=== PATIENT | female | born 1980 ===

== ENCOUNTER 2020-10-23 23:28 | Emergency (ER) | payer SELFPAY ==
--- OUTSIDE RECORDS SUMMARY | 2020-10-23 23:31 | XMS REPORT | Continuity of Care Document ---
:1980 Author Organization [facility] t Address [address] [place] [address] Care Team Providers Name Role Phone Sadi Alexander DO Attending Clinician MS Kianna MITCHELL Attending Clinician Unavailable Willy RODRIGUEZ Attending Clinician Unavailable MS Kianna MITCHELL Admitting Clinician Unavailable Willy RODRIGUEZ Admitting Clinician Unavailable Problems This patient has no known problems. Allergies, Adverse Reactions, Alerts This patient has no known allergies or adverse reactions. Medications This patient has no known medications. Procedures This patient has no known procedures. Encounters Start End Encounter Admission Attending Care Care Encounter Source Date/Time Date/Time Type Type Clinicians Facility Department ID 2020-06-25 2020-06-[address] [facility] [id number] 19:53:00 21:47:00 Yuki Navarro [id number] [place] [id number] [place] [id number] 2018-05-24 2018-05-[address] [facility] [id number] [place] 12:08:00 12:41:00 [facility] 2017-08-17 2017-08-18 Emergency E YINA [facility]ODRIGUEZ [facility] [id number]18[facility]00 [facility] Results Test Description Test Time Test Comments Results Result Comments Source AMYLASE AND LIPASE 2017-08-18 00:12:00 Test Item Value Reference Range Interpretation Comme nts AMYLASE (test code = 10A) 29 U/L 28-100 LIPASE (test code = 60A) 186 IU/L 73-393 COMPREHENSIVE METABOLIC POLO 2017-08-18 00:12:00 Test Item Value Reference Range Interpretation Comments GLUCOSE (test code = 06D) 230 mg/dL 75-100 H SODIUM (test code = 01A) 137 mmol/L 136-145 POTASSIUM (test code = 01B) 3.5 mmol/L 3.6-5.1 L CHLORIDE (test code = 04A) 101 mmol/L 98-107 CO2 (test code = 02A) 29 mmol/L 22-32 ANION GAP (test code = ANG) 10.5 mmol/L BUN (test code = 05D) 12 mg/dL 7-18 CREATININE (test code = 03E) 0.8 mg/dL 0.4-1.1 BUN/CREA (test code = BCR) 15 12-20 CALCIUM (test code = 09D) 8.4 mg/dL 8.3-9.5 BILI TOTAL (test code = 11A) 0.3 mg/dL 0.2-1.0 PROTEIN (test code = 07D) 8.2 g/dL 6.4-8.2 ALBUMIN (test code = 08D) 3.5 g/dL 3.5-4.8 GLOBULIN (test code = GLB) 4.6 g/dL 1.5-3.8 H ALB/GLOB (test code = AGRR) 0.8 1.0-2.6 L ALK PHOS (test code = 35A) 87 IU/L 42-121 AST (test code = 30A) 18 IU/L <=42 ALT (test code = 31A) 32 IU/L <=78 URINALYSIS 2017-08-18 00:00:00 Test Item Value Reference Range Interpretation Comments COLOR (test code = COLU) YELLOW YELLOW CLARITY (test code = CLA) CLEAR CLEAR GLUCOSE UR (test code = UA GLUCOSE) 3+ NEGATIVE A BILI UR (test code = BILE) NEGATIVE NEGATIVE KETONES UR (test code = PARMINDER) NEGATIVE NEGATIVE SP GRAVITY (test code = SPGR) 1.020 1.005-1.030 PH UR (test code = PH) 6.0 4.5-8.0 PROTEIN UR (test code = PU) NEGATIVE NEGATIVE UROBIL UR (test code = UROQ) 0.2 EU/dL 0.2-1.0 NITRITE UR (test code = NITRITE) NEGATIVE NEGATIVE BLOOD UR (test code = UA BLOOD) NEGATIVE NEGATIVE LEUK ES UR (test code = LEUK) NEGATIVE NEGATIVE AUAM (test code = WAUAM) NO NO URINE MONOCLONAL *WW*2017-08-18 00:00:00 Test Item Value Reference Range Interpretation Comments PREG UR (test code = PGU) NEGATIVE NEGATIVE CBC (INCLUDES AUTOMATED DIFFERENTIAL)*[id number] 23:57:00 Test Item Value Reference Range Interpretation Comments WBC (test code = WBC) 11.1 10\S\3/uL 4.5-11.0 H RBC (test code = RBC) 5.22 10\S\6/uL 4.30-5.70 HGB (test code = HBG) 15.5 g/dL 12.0-15.5 HCT (test code = HCT) 45.7 % 35.0-44.0 H MCV (test code = MCV) 87.5 fL 81.0-99.0 MCH (test code = MCH) 29.7 pg 27.0-31.0 MCHC (test code = MCHC) 33.9 g/dL 32.0-36.0 RDW (test code = RDW) 12.7 % 11.5-14.5 PLT (test code = PLT) 299 10\S\3/uL 130-400 MPV (test code = MPV) 9.8 fL 9.4-12.4 NEUTROP # (test code = NE#) 5.1 10\S\3/uL 1.6-8.0 LYMPH # (test code = LY#) 4.6 10\S\3/uL 1.1-3.5 H MONOCYTE # (test code = MO#) 0.7 10\S\3/uL 0.0-1.1 EOSINOPH # (test code = EO#) 0.7 10\S\3/uL 0.0-0.7 BASOPHIL # (test code = BA#) 0.1 10\S\3/uL 0.0-0.3 IG # (test code = IG#) 0.02 10\S\3/uL 0.00-0.06 NRBC # (test code = NRBC#) 0.00 10\S\3/uL 0.00-0.01 NEUTROPH % (test code = NE%) 45.3 % 35.0-73.0 LYMPH % (test code = LY%) 41.2 % 20.0-55.0 MONO % (test code = MO%) 6.6 % 2.5-10.0 EOSINOPH % (test code = EO%) 6.0 % 0.0-5.0 H BASOPHIL % (test code = BA%) 0.7 % 0.0-2.0 IG % (test code = IG%) 0.2 % 0.0-0.8 NRBC% (test code = NRBC%) 0.0 % 0.0-0.2 MANDIFF (test code = WMDIFF) NO NO RBC MORPH (test code = NORMAL WRBCMOR)
--- NOTE | 2020-10-24 00:22 | EDPHYS ---
Physician Documentation [facility] Name: Helen Hart Age: 39 yrs Sex: Female : 1980 Arrival Date: 10/23/2020 Time: 23:34 Bed 16 Private MD: ED Physician Lennie Shell HPI: 10/24 00:07 This 39 yrs old Female presents to ER via Ambulatory with complaints of Ankle Injury. jr8 00:07 The patient presents with decreased range of motion, pain, that is acute, swelling, jr8 tenderness. The complaints affect the right ankle. Onset: The symptoms/episode began/occurred acutely, today. Context: The problem was sustained outdoors, resulted from the patient tripping. Associated signs and symptoms: The patient has no apparent associated signs or symptoms. Modifying factors: The symptoms are alleviated by nothing, the symptoms are aggravated by weight bearing, movement. Severity of symptoms: At their worst the symptoms were mild, in the emergency department the symptoms are unchanged. The patient has not experienced similar symptoms in the past. The patient has not recently seen a physician. 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 - Social history:: Smoking status: Patient reports the use of cigarette tobacco products, smokes one pack cigarettes per day. Patient uses alcohol, occasionally. Patient/guardian denies using street drugs, IV drugs. ROS: 00:07 Eyes: Negative for injury, pain, redness, and discharge, ENT: Negative for injury, jr8 pain, and discharge, Neck: Negative for injury, pain, and swelling, Cardiovascular: Negative for chest pain, palpitations, and edema, Respiratory: Negative for shortness of breath, cough, wheezing, and pleuritic chest pain, Abdomen/GI: Negative for abdominal pain, nausea, vomiting, diarrhea, and constipation, Back: Negative for injury and pain, Skin: Negative for injury, rash, and discoloration, Neuro: Negative for headache, weakness, numbness, tingling, and seizure. 00:07 MS/extremity: Positive for decreased range of motion, pain, swelling, tenderness, of the right ankle. Exam: 00:07 Constitutional: This is a well developed, well nourished patient who is awake, alert, jr8 and in no acute distress. Cardiovascular: Regular rate and rhythm with a normal S1 and S2. No gallops, murmurs, or rubs. Normal PMI, no JVD. No pulse deficits. Respiratory: Lungs have equal breath sounds bilaterally, clear to auscultation and percussion. No rales, rhonchi or wheezes noted. No increased work of breathing, no retractions or nasal flaring. Skin: Warm, dry with normal turgor. Normal color with no rashes, no lesions, and no evidence of cellulitis. Neuro: Awake and alert, GCS 15, oriented to person, place, time, and situation. Cranial nerves II-XII grossly intact. Motor strength 5/5 in all extremities. Sensory grossly intact. Cerebellar exam normal. Normal gait. 00:07 Musculoskeletal/extremity: Extremities: grossly normal except: noted in the right ankle: Patient has mild swelling with tenderness to medial malleolus. Decreased ROM secondary to pain. Pulses 2+ with normal sensation . Vital Signs: 00:02 BP 134 / 79; Pulse 83; Resp 17; Temp 99(O); Pulse Ox 99% ; Weight 104.33 kg; Height 5 tl1 ft. 8 in. (172.72 cm); Pain 9/10; 00:02 Body Mass Index 34.97 (104.33 kg, 172.72 cm) tl1 Procedures: 00:20 Splinting: Splint applied to right ankle using dwight wrap, applied by nurse. Examined by jr8 vt, post splint application: neurovascular intact, 2+ distal pulses palpable, brisk capillary refill noted, Patient tolerated well. Crutch training provided to patient and/or family. Return demonstration given. MDM: 10/23 23:50 Patient medically screened. jr8 10/24 00:20 Data reviewed: vital signs, nurses notes, radiologic studies, plain films. Data jr8 interpreted: Pulse oximetry: on room air is 99 %. Interpretation: normal. Test interpretation: by ED physician or midlevel provider: plain radiologic studies, No obvious fracture noted. Calcaneal spur seen . Counseling: I had a detailed discussion with the patient and/or guardian regarding: the historical points, exam findings, and any diagnostic results supporting the discharge/admit diagnosis, radiology results, the need for outpatient follow up, a orthopedic surgeon, to return to the emergency department if symptoms worsen or persist or if there are any questions or concerns that arise at home. 10/23 23:57 Order name: XRAY Ankle RIGHT 3 view jr8 10/24 00:19 Order name: Crutches; Complete Time: 00:45 jr8 10/24 00:19 Order name: Dwight wrap-joint; Complete Time: 00:33 jr8 Administered Medications: No medications were administered Disposition: 02:13 Co-signature as Attending Physician, Lennie Shell MD. ma2 Disposition: 10/24/20 00:21 Discharged to Home. Impression: Sprain of ankle. - Condition is Stable. - Discharge Instructions: Ankle Sprain. - Prescriptions for Ibuprofen 800 mg Oral Tablet - take 1 tablet by ORAL route every 12 hours As needed take with food; 20 tablet. - Medication Reconciliation Form, Thank You Letter, Antibiotic Education, Prescription Opioid Use form. - Follow up: Akhil Steve MD; When: 7 - 10 days; Reason: Recheck today's complaints, Continuance of care, Re-evaluation by your physician. - Problem is new. - Symptoms have improved. Signatures: Dispatcher [employer] EDMS Geoffrey Hinson PA PA jr8 Shonda Castillo RN RN tl1 Lennie Shell MD MD ma2 Akhil Staley RN RN sf Corrections: (The following items were deleted from the chart) 00:46 00:21 10/24/2020 00:21 Discharged to Home. Impression: Sprain of ankle. Condition is sf Stable. Forms are Medication Reconciliation Form, Thank You Letter, Antibiotic Education, Prescription Opioid Use. Follow up: Akhil Steve; When: 7 - 10 days; Reason: Recheck today's complaints, Continuance of care, Re-evaluation by your physician. Problem is new. Symptoms have improved. jr8
--- NOTE | 2020-10-24 00:22 | ER ---
Nurse's Notes [facility] Name: Helen Hart Age: 39 yrs Sex: Female : 1980 Arrival Date: 10/23/2020 Time: 23:34 Bed 16 Private MD: Diagnosis: Sprain of ankle Presentation: 10/23 23:59 Chief complaint: Patient states: I was helping my brother move and I twisted my right tl1 ankle and then when I stepped out of the truck I twisted it again. This happened earlier today. Coronavirus screen: Client denies travel out of the [place] in the last 14 days. At this time, the client does not indicate any symptoms associated with coronavirus-19. Ebola Screen: Patient negative for fever greater than or equal to 101.5 degrees Fahrenheit, and additional compatible Ebola Virus Disease symptoms Patient denies exposure to infectious person. Patient denies travel to an Ebola-affected area in the 21 days before illness onset. Initial Sepsis Screen: Does the patient meet any 2 criteria? No. Patient's initial sepsis screen is negative. Does the patient have a suspected source of infection? No. Patient's initial sepsis screen is negative. Risk Assessment: Do you want to hurt yourself or someone else? Patient reports no desire to harm self or others. Onset of symptoms was October 24, 2020. 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 - Social history:: Smoking status: Patient reports the use of cigarette tobacco products, smokes one pack cigarettes per day. Patient uses alcohol, occasionally. Patient/guardian denies using street drugs, IV drugs. Screenin:04 Abuse screen: Denies threats or abuse. Denies injuries from another. Nutritional tl1 screening: No deficits noted. Tuberculosis screening: No symptoms or risk factors identified. Fall Risk None identified. Assessment: 00:03 General: Appears in no apparent distress. Behavior is calm, cooperative, appropriate tl1 for age. Pain: Complains of pain in right medial malleolus and right Achilles Pain currently is 9 out of 10 on a pain scale. Neuro: No deficits noted. Cardiovascular: Reports None. Respiratory: Airway is patent. GI: No signs and/or symptoms were reported involving the gastrointestinal system. : No signs and/or symptoms were reported regarding the genitourinary system. EENT: No signs and/or symptoms were reported regarding the EENT system. Derm: No signs and/or symptoms reported regarding the dermatologic system. Musculoskeletal: Swelling present in right medial malleolus and right Achilles Tenderness present in right medial malleolus and right Achilles Reports pain in right medial malleolus and right Achilles. Vital Signs: 00:02 BP 134 / 79; Pulse 83; Resp 17; Temp 99(O); Pulse Ox 99% ; Weight 104.33 kg; Height 5 tl1 ft. 8 in. (172.72 cm); Pain 9/10; 00:02 Body Mass Index 34.97 (104.33 kg, 172.72 cm) tl1 ED Course: 10/23 23:34 Patient arrived in ED. ag3 23:50 Geoffrey Hinson PA is PHCP. jr8 23:50 Lennie Shell MD is Attending Physician. jr8 03 00:01 Triage completed. tl1 00:03 Arm band placed on right wrist. tl1 00:13 Akhil Staley, ROD is Primary Nurse. sf 00:21 Akhil Steve MD is Referral Physician. jr8 00:25 Patient has correct armband on for positive identification. Bed in low position. Call sf light in reach. Door closed. Noise minimized. Visitors limited. Lights dimmed. Verbal reassurance given. 00:25 No provider procedures requiring assistance completed. Patient did not have IV access sf during this emergency room visit. 00:26 XRAY Ankle RIGHT 3 view Sent. sf 00:33 Dwight wrap to right ankle. sf 00:46 Crutch training done. sf 01:03 XRAY Ankle RIGHT 3 view In Process Unspecified. EDMS Administered Medications: No medications were administered Outcome: 00:21 Discharge ordered by MD. liriano 00:33 Discharged to home ambulatory, with crutches. sf 00:33 Condition: stable 00:33 Discharge instructions given to patient, Instructed on discharge instructions, follow up and referral plans. medication usage, crutch walking, Demonstrated understanding of instructions, follow-up care, medications, crutch walking, Prescriptions given X 1. 00:46 Patient left the ED. sf Signatures: Dispatcher [employer] EDMS Geoffrey Hinson PA PA jr8 Shonda Castillo, RN RN tl1 Reina Looney ag3 Akhil Staley RN RN sf
[2020-10-24 01:09] VITALS: BP 134/79; TEMP 99; O2SAT 99
--- NOTE | 2020-10-24 08:41 | RAD REPORT ---
EXAM DESCRIPTION: RAD - Ankle Right 3 View - 10/24/2020 12:14 am CLINICAL HISTORY: PAIN COMPARISON: No comparisons FINDINGS: Moderate soft tissue swelling is present about the ankle. No fracture evident. Moderate pl miguel ángel and small posterior calcaneal spur.
== END 2020-10-24 00:46 | disposition home or self-care (01) ==
LOC: ER 23:28
DX: S93.401A Sprain of unspecified ligament of right ankle, initial encounter (principal); F17.210 Nicotine dependence, cigarettes, uncomplicated; E11.9 Type 2 diabetes mellitus without complications; W01.0XXA Fall on same level from slipping, tripping and stumbling without subsequent striking against object, initial encounter
CPT/HCPCS: 99283

== ENCOUNTER 2021-02-19 19:18 | Emergency (ER) | payer SELFPAY ==
--- OUTSIDE RECORDS SUMMARY | 2021-02-19 19:21 | XMS REPORT | Continuity of Care Document ---
:1980 Author Organization [facility] t Address [address] [place] [address] Care Team Providers Name Role Phone Sadi [...] 2020-06-25 2020-06-[address] [facility] [id number] 19:53:00 21:47:00 Yuki Navarro [id number] [place] [id number] [place] [id number] 2018-05-24 2018-05-24 Outpatient E YINA MITCHELL [facility] [id number] [place] 12:08:00 12:41:00 [facility] 2017-08-17 2017-08-18 Emergency E YINA RODRIGUEZ [facility] [id number] [facility] 23:10:00 00:18:00 [facility] Results Test Description Test Time Test Comments [...] = PGU) NEGATIVE NEGATIVE CBC (INCLUDES AUTOMATED DIFFERENTIAL)*[id number] 23:57:00 Test Item Value Reference Range Interpretation [...]
--- NOTE | 2021-02-19 21:50 | ER ---
Nurse's Notes [facility] Name: Helen Hart Age: 40 yrs Sex: Female : 1980 Arrival Date: 02/19/2021 Time: 19:20 Bed 12 Private MD: Diagnosis: Coronavirus infection, unspecified Presentation: 02/19 19:37 Chief complaint: Patient states: cough, congestion, low grade fever 99.9 for several bb days. Coronavirus screen: At this time, the client does not indicate any symptoms associated with coronavirus-19. Ebola Screen: No symptoms or risks identified at this time. Initial Sepsis Screen: Does the patient meet any 2 criteria? No. Patient's initial sepsis screen is negative. Does the patient have a suspected source of infection? No. Patient's initial sepsis screen is negative. Risk Assessment: Do you want to hurt yourself or someone else? Patient reports no desire to harm self or others. Onset of symptoms was February 18, 2021. 19:37 Method Of Arrival: Ambulatory bb 19:37 Acuity: REYES 3 bb Triage Assessment: 19:38 General: Appears in no apparent distress. Behavior is calm, cooperative. Pain: Denies bb pain. Respiratory: Reports cough that is persistent Airway is patent Respiratory effort is even, unlabored, Respiratory pattern is regular, Breath sounds are clear bilaterally. Derm: Skin is pink, warm \T\ dry. Musculoskeletal: Circulation, motion, and sensation intact. 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 - Social history:: Smoking status: Patient reports the use of cigarette tobacco products, smokes one-half pack cigarettes per day, Patient uses alcohol, but reports only rare drinking. Patient/guardian denies using street drugs. Screenin:46 Abuse screen: Denies threats or abuse. Nutritional screening: No deficits noted. em Tuberculosis screening: No symptoms or risk factors identified. Fall Risk None identified. Assessment: 20:50 General: Appears in no apparent distress. comfortable, Behavior is calm, cooperative, em appropriate for age. Neuro: Level of Consciousness is awake, alert, obeys commands, Oriented to person, place, time, situation. Cardiovascular: Capillary refill < 3 seconds Patient's skin is warm and dry. Respiratory: Reports shortness of breath at rest Airway is patent Respiratory effort is even, unlabored, Respiratory pattern is regular, symmetrical, Derm: Skin is intact, is healthy with good turgor, Skin is pink, warm \T\ dry. Musculoskeletal: Capillary refill < 3 seconds, Range of motion: intact in all extremities. 21:55 Reassessment: Patient and/or family updated on plan of care and expected duration. Pain ea level reassessed. Patient is alert, oriented x 3, equal unlabored respirations, skin warm/dry/pink. Discharge instruction given to patient verbalized the understanding of instruction . Vital Signs: 19:37 BP 136 / 80; Pulse 86; Resp 16 S; Temp 99.4(O); Pulse Ox 98% on R/A; Weight 104.33 kg bb (R); Height 5 ft. 8 in. (172.72 cm) (R); Pain 0/10; 19:37 Body Mass Index 34.97 (104.33 kg, 172.72 cm) bb ED Course: 19:20 Patient arrived in ED. es 19:21 Maria D Ellis FNP-C is [facility]. kb 19:21 Nabil Barragan MD is Attending Physician. kb 19:38 Triage completed. bb 19:38 Arm band placed on Patient placed in waiting room, Patient notified of wait time. bb 20:46 Chito Hernandez, RN is Primary Nurse. em 20:46 Patient has correct armband on for positive identification. em 21:56 No provider procedures requiring assistance completed. Patient did not have IV access ea during this emergency room visit. Administered Medications: No medications were administered Outcome: 21:49 Discharge ordered by . kb 21:56 Discharged to home ambulatory. ea 21:56 Condition: stable 21:56 Discharge instructions given to patient, Instructed on discharge instructions, follow up and referral plans. medication usage, Demonstrated understanding of instructions, follow-up care, medications, Prescriptions given X 1. 21:56 Patient left the ED. ea Signatures: Maria D Ellis FNP-C POLE CLASSIFIER-Ckb Sandy Martinez Edgar, RN RN em Nevaeh Reinoso, RN RN Maranda Gustafson RN RN ea
--- NOTE | 2021-02-19 21:50 | EDPHYS ---
Physician Documentation [facility] Name: Helen Hart Age: 40 yrs Sex: Female : 1980 Arrival Date: 02/19/2021 Time: 19:20 Bed 12 Private MD: ED Physician Nabil Barragan HPI: 02/19 22:45 This 40 yrs old Female presents to ER via Ambulatory with complaints of Fever, kb Congestion. 22:45 The patient or guardian reports cough, that is intermittent, described as mild, with no kb sputum, flu symptoms, low-grade fever. Associated signs and symptoms: Pertinent positives: fever, rhinorrhea, Pertinent negatives: chest pain, diarrhea, ear ache, nausea, sore throat, vomiting. The patient has not experienced similar symptoms in the past. The patient has not recently seen a physician. 22:46 Onset: The symptoms/episode began/occurred 3 day(s) ago. Severity of symptoms: At their kb worst the symptoms were mild, in the emergency department the symptoms are unchanged. Modifying factors: The symptoms are alleviated by nothing, the symptoms are aggravated by nothing. Pt reports low grade fever, cough, and congestion for 3 days. States she thinks it is sinusitis. . [employer]ER: 19:38 LMP N/A - Irregular menses bb Historical: - Allergies: 19:38 Codeine; bb 19:38 Kenalog; bb 19:38 PENICILLINS; bb 19:38 Sulfa (Sulfonamide Antibiotics); bb - Home Meds: 19:38 None [Active]; bb - PMHx: 19:38 Diabetes - NIDDM; bb - PSHx: 19:38 None; bb - Immunization history:: Adult Immunizations up to date. - Social history:: Smoking status: Patient reports the use of cigarette tobacco products, smokes one-half pack cigarettes per day, Patient uses alcohol, but reports only rare drinking. Patient/guardian denies using street drugs. ROS: 22:40 Abdomen/GI: Negative for abdominal pain, nausea, vomiting, diarrhea, and constipation. kb 22:40 Constitutional: Positive for fever, malaise, Negative for body aches, chills, fatigue, poor PO intake, weight loss. 22:40 ENT: Positive for rhinorrhea, sinus congestion. 22:40 Respiratory: Positive for cough, Negative for dyspnea on exertion, hemoptysis, orthopnea, pleurisy, shortness of breath, sputum production, wheezing. 22:40 All other systems are negative. Exam: 22:45 Constitutional: This is a well developed, well nourished patient who is awake, alert, kb and in no acute distress. Head/Face: Normocephalic, atraumatic. Cardiovascular: Regular rate and rhythm with a normal S1 and S2. No gallops, murmurs, or rubs. No pulse deficits. Respiratory: Respirations even and unlabored. No increased work of breathing, no retractions or nasal flaring. Abdomen/GI: Soft, non-tender. No distention Skin: Warm, dry with normal turgor. Normal color. MS/ Extremity: Pulses equal, no cyanosis. Neurovascular intact. Full, normal range of motion. Neuro: Awake and alert, GCS 15, oriented to person, place, time, and situation. Moves all extremities. Normal gait. Psych: Awake, alert, with orientation to person, place and time. Behavior, mood, and affect are within normal limits. 22:45 ENT: External ear(s): are unremarkable, Ear canal(s): are normal, TM's: fluid levels, bilaterally, Nose: is normal, Mouth: is normal. Vital Signs: 19:37 BP 136 / 80; Pulse 86; Resp 16 S; Temp 99.4(O); Pulse Ox 98% on R/A; Weight 104.33 kg bb (R); Height 5 ft. 8 in. (172.72 cm) (R); Pain 0/10; 19:37 Body Mass Index 34.97 (104.33 kg, 172.72 cm) bb MDM: 20:35 Patient medically screened. [facility] 22:40 Data reviewed: vital signs, nurses notes. Data interpreted: Pulse oximetry: on room air kb is 98 %. Interpretation: normal. Counseling: I had a detailed discussion with the patient and/or guardian regarding: the historical points, exam findings, and any diagnostic results supporting the discharge/admit diagnosis, lab results, the need for outpatient follow up, a family practitioner, to return to the emergency department if symptoms worsen or persist or if there are any questions or concerns that arise at home. 02/19 21:50 Order name: SARS-COV-2 RT PCR; Complete Time: 21:50 EDMS Administered Medications: No medications were administered Disposition Summary: 02/19/21 21:49 Discharge Ordered Location: Home kb Condition: Stable kb Diagnosis - Coronavirus infection, unspecified kb Followup: kb - With: Emergency Department - When: As needed - Reason: Worsening of condition Followup: kb - With: Private Physician - When: 2 - 3 days - Reason: Recheck today's complaints, Continuance of care, Re-evaluation by your physician Discharge Instructions: - Discharge Summary Sheet kb - Viral Respiratory Infection, [id number]-Au-[id number] kb - COVID-19 kb Forms: - Medication Reconciliation Form kb - Thank You Letter kb - Antibiotic Education kb - Prescription Opioid Use kb - Work release form tt3 Prescriptions: - Prednisone 20 mg Oral Tablet - take 1 tablet by ORAL route once daily for 5 days; 5 tablet; Refills: 0, kb Product Selection Permitted Addendum: 02/23/2021 07:34 Co-signature as Attending Physician, Nabil Barragan MD I agree with the assessment and c cantor plan of care. Signatures: Dispatcher [employer] EDMariaD Oswald, PLANTING MATERIAL UNLOADER-C PLANTING MATERIAL UNLOADER-Nabil Ronquillo MD MD cha Ballard, Brenda, RN RN bb Corrections: (The following items were deleted from the chart) 02/19 20:32 19:51 CORONAVIRUS+MR.LAB.BRZ ordered. EDMS EDMS 20:54 19:51 Influenza Screen (A \T\ B)+BA.LAB.BRZ ordered. EDOH EDMS
[2021-02-19 22:09] VITALS: BP 136/80; TEMP 99.4; O2SAT 98
== END 2021-02-19 21:56 | disposition home or self-care (01) ==
LOC: ER 19:18
DX: U07.1 COVID-19 (principal); E11.9 Type 2 diabetes mellitus without complications; F17.210 Nicotine dependence, cigarettes, uncomplicated
CPT/HCPCS: 99282; U0003